=== PATIENT | female | born 2005 | race Caucasian/White ===

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

== ENCOUNTER 2023-11-19 21:20 | Emergency (ER) | payer OTHER ==
[~2023-11-19] VITALS: Ht 154.9 cm; Wt 74.8 kg
[~2023-11-19 21:20] MED LIST changes: +PSEU120T57 PO
[2023-11-19 21:36] VITALS: BP_SYST 120; PULSE 107; RESP 20; TEMP 98.3; O2SAT 95
[2023-11-19] MEDS: ONDANSETRON 4 MG ODT TAB PO ONE (22:11)
[2023-11-19] MEDS: NACL 0.9% 1,000 ML IV ONE (22:32)
[2023-11-19] MEDS: ONDANSETRON HCL 4 MG/2 ML VIAL IVP ONE (22:34)
[2023-11-19 23:14] LABS: EOSINOPHILS # (AUTO) 1.9 K/uL (0.0-0.4); EOSINOPHILS % (AUTO) 11.8 % (0.0-4.0); HEMATOCRIT 38.6 % (36-48); HEMOGLOBIN 13.6 g/dL (12.0-16.0); LYMPHOCYTES % (AUTO) 6.4 % (20.5-51.5); MEAN CORPUSCULAR HEMOGLOBIN 31 pg (27-31); MEAN CORPUSCULAR HGB CONC 35 % (32-36); MEAN CORPUSCULAR VOLUME 88 fL (79.0-98.0); MONOCYTES # (AUTO) 0.7 K/uL (0.0-1.0); NEUTROPHILS # (AUTO) 12.7 K/uL (1.8-7.7); NEUTROPHILS % (AUTO) 77.8 % (40.0-70.0); PLATELET COUNT (AUTO) 291 K/uL (130-430); RED BLOOD CELL COUNT(AUTO) 4.37 MIL/uL (4.2-6.2); RED CELL DISTRIBUTION WIDTH 12.8 % (9.0-15.0); WHITE BLOOD COUNT (AUTO) 16.3 K/uL (4.5-11.0)
[2023-11-19 23:36] LABS: ALBUMIN 3.8 g/dL (3.4-4.8); BILIRUBIN,DIRECT 0.1 mg/dL (0.0-0.3); CALCIUM 9.9 mg/dL (8.4-11.0); CREATININE 0.63 mg/dL (0.55-1.30); POTASSIUM 3.4 mmol/L (3.5-5.1); TOTAL BILIRUBIN 0.8 mg/dL (0.0-1.0); TOTAL PROTEIN, SERUM 7.9 g/dL (6.4-8.3)
[2023-11-19 23:58] LABS: BILIRUBIN,URINE 1+ (NEGATIVE); BLOOD, URINE NEGATIVE (NEGATIVE); CLARITY/URINE CLOUDY (CLEAR); COLOR,URINE YELLOW (YELLOW); GLUCOSE,URINE NEGATIVE (NEGATIVE); KETONES,URINE 3+ (NEGATIVE); LEUKOCYTE ESTERASE ,URINE NEGATIVE (NEGATIVE); NITRITE, URINE NEGATIVE (NEGATIVE); PROTEIN URINE 2+ (NEGATIVE); UROBILINOGEN,URINE 0.2 (0.2-1.0)
[2023-11-20 00:36] LABS: BACTERIA,URINE None Seen /HPF (None Seen); RBC,URINE 0-3 /HPF (0-3); WBC,URINE 0-3 /HPF (0-3)
[2023-11-20] MEDS ORDERED: ONDA-8 TL (00:46)
[2023-11-20 00:51] VITALS: BP_SYST 104; PULSE 74; RESP 18; O2SAT 98
== END 2023-11-20 00:50 | disposition home or self-care (01) ==
LOC: SED 21:20
DX: O21.0 Mild hyperemesis gravidarum (principal); J45.909 Unspecified asthma, uncomplicated; Z3A.15 15 weeks gestation of pregnancy; Z79.899 Other long term (current) drug therapy; Z79.2 Long term (current) use of antibiotics
CPT/HCPCS: 99283; 96374; 96361; 80076; 80048; 81001; 85025; 36415; 81000; 81015; Q0162; J2405; J7030

== ENCOUNTER 2024-02-07 13:42 | Emergency (ER) | payer MEDICAID, OTHER ==
[~2024-02-07] VITALS: Ht 154.9 cm; Wt 77.1 kg
[~2024-02-07 13:42] MED LIST changes: +ONDA-8 TL
[2024-02-07 14:10] VITALS: BP_SYST 114; PULSE 112; RESP 16; TEMP 97.5; O2SAT 96
[2024-02-07] MEDS: NACL 0.9% 1,000 ML IV ONE (14:45)
[2024-02-07 14:46] LABS: BILIRUBIN,URINE NEGATIVE (NEGATIVE); BLOOD, URINE NEGATIVE (NEGATIVE); CLARITY/URINE CLEAR (CLEAR); COLOR,URINE YELLOW (YELLOW); GLUCOSE,URINE NEGATIVE (NEGATIVE); KETONES,URINE TRACE (NEGATIVE); LEUKOCYTE ESTERASE ,URINE NEGATIVE (NEGATIVE); NITRITE, URINE NEGATIVE (NEGATIVE); PH,URINE 6.5 (5.0-8.0); PROTEIN URINE TRACE (NEGATIVE); UROBILINOGEN,URINE 0.2 (0.2-1.0)
[2024-02-07] MEDS: ONDANSETRON HCL 4 MG/2 ML VIAL IVP ONE (14:46)
[2024-02-07] MEDS: IBUPROFEN 600 MG TABLET PO ONE (14:47)
[2024-02-07 14:55] LABS: BACTERIA,URINE FEW /HPF (None Seen); MUCUS,URINE 1+ /LPF (None Seen); RBC,URINE NONE SEEN /HPF (0-3); WBC,URINE 0-3 /HPF (0-3)
[2024-02-07 14:55] LABS: EOSINOPHILS # (AUTO) 0.1 K/uL (0.0-0.4); EOSINOPHILS % (AUTO) 0.8 % (0.0-4.0); NEUTROPHILS % (AUTO) 77.4 % (40.0-70.0); RED CELL DISTRIBUTION WIDTH 12.8 % (9.0-15.0)
[2024-02-07 15:02] LABS: BASOPHILS % (AUTO) 0.3 % (0.0-2.0); HEMATOCRIT 37.1 % (36-48); HEMOGLOBIN 12.8 g/dL (12.0-16.0); MEAN CORPUSCULAR HEMOGLOBIN 32 pg (27-31); MEAN CORPUSCULAR HGB CONC 34 % (32-36); MEAN CORPUSCULAR VOLUME 93 fL (79.0-98.0); MONOCYTES # (AUTO) 1.1 K/uL (0.0-1.0); MONOCYTES % (AUTO) 7.5 % (1.7-9.3); PLATELET COUNT (AUTO) 296 K/uL (130-430); WHITE BLOOD COUNT (AUTO) 14.2 K/uL (4.5-11.0)
[2024-02-07 15:06] LABS: ALBUMIN 3.2 g/dL (3.4-4.8); BILIRUBIN,DIRECT 0.1 mg/dL (0.0-0.3); CALCIUM 9.4 mg/dL (8.4-11.0); CREATININE 0.62 mg/dL (0.55-1.30); POTASSIUM 4.1 mmol/L (3.5-5.1); TOTAL BILIRUBIN 0.4 mg/dL (0.0-1.0); TOTAL PROTEIN, SERUM 7.2 g/dL (6.4-8.3)
[2024-02-07] MEDS ORDERED: ONDA-8 TL (15:50)
[2024-02-07] MEDS ORDERED: DOXY1TAB3 PO (15:50)
[2024-02-07] MEDS: D5NS 500 ML IV ONE (15:57)
[2024-02-07 16:25] VITALS: BP_SYST 114; PULSE 112; RESP 16; TEMP 97.5; O2SAT 96
== END 2024-02-07 16:25 | disposition home or self-care (01) ==
LOC: SED 13:42
DX: O21.9 Vomiting of pregnancy, unspecified (principal); O12.12 Gestational proteinuria, second trimester; Z3A.26 26 weeks gestation of pregnancy
CPT/HCPCS: 99283; 96374; 96361; 80076; 80048; 81000; 81001; 85025; 36415; 81015; J2405; J7030